=== PATIENT | male | born 1965 | race Asian ===

== ENCOUNTER 2021-03-02 16:32 | Outpatient (CLI) | payer BC ==
--- NOTE | 2021-03-02 17:06 | XRAY Report ---
PROCEDURE: Foot 3 View RT INDICATIONS: CONTUSION OF R FOOT TECHNIQUE: 3 views of the foot were acquired. COMPARISON: None FINDINGS: Bones: No fractures or dislocations. No suspicious bony lesions. Soft tissues: No tibiotalar joint effusion. Achilles tendon appears normal. IMPRESSION: No visualized acute fracture or dislocation. However, occult injury cannot be excluded. Recommend aiyana rt interval imaging follow-up in 7-10 days as clinically indicated for additional evaluation. Reviewed by: Isabelle Karimi MD on 03/02/2021 5:05 PM PDT Approved by: Isabelle Karimi MD on 03/02/2021 5:05 PM PDT Station ID: [id number]
== END 2021-03-02 23:59 | disposition home or self-care (01) ==
LOC: DI.N 16:32
PROVIDERS: ATTEND Nurse Practitioner
DX: S90.31XA Contusion of right foot, initial encounter (principal)